=== PATIENT | male | born 1965 | race Caucasian/White ===

== ENCOUNTER 2021-11-03 02:18 | Emergency (ER) | payer SELFPAY ==
[2021-11-03] MEDS ORDERED: Acetaminophen/HYDROcodone 325-5 MG Tab PO ONE ×2 (02:41→03:00)
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
--- NOTE | 2021-11-03 09:27 | CR ---
Left clavicle: 2 views of the left clavicle were obtained. Comparison: No prior clavicle exam is available. Fracture is seen near the junction of the mid and distal clavicle. There is displacement by almost a shaft width. Minimal comminution is seen. Acromioclavicular joint is normal. No additional abnormality is appreciated. Impression: 1. Mildly displaced clavicle fracture as described above. Diagnostic code #3
== END 2021-11-03 03:20 | disposition home or self-care (01) ==
LOC: JD.ED 02:18
DX: S42.022A Displaced fracture of shaft of left clavicle, initial encounter for closed fracture (principal); V29.9XXA Motorcycle rider (driver) (passenger) injured in unspecified traffic accident, initial encounter; Y93.55 Activity, bike riding
CPT/HCPCS: 73000; 99283; A9270; 99285